=== PATIENT | female | born 1940 ===

== ENCOUNTER 2018-01-30 17:09 | Emergency (ER) | payer MEDICARE, BC ==
[~2018-01-30] VITALS: Ht 165.1 cm; Wt 61.2 kg
[2018-01-30] MEDS ORDERED: HYDR12.55 PO (17:26)
[2018-01-30] MEDS ORDERED: CITALOPRAM (17:26)
[2018-01-30] MEDS ORDERED: FOSAMAX (17:26)
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
--- NOTE | 2018-01-30 18:12 | NUR ---
Taken to CT scan.
--- NOTE | 2018-01-30 18:28 | NUR ---
Back from CT scan.
--- NOTE | 2018-01-30 19:47 | NUR ---
Patient discharged to home in stable conditon. Written and verbal after care instructions given. Patient verbalizes understanding of instructions.
[2018-01-30 19:49] VITALS: BP 168/83
== END 2018-01-30 19:51 | disposition home or self-care (01) ==
LOC: ER 17:11
DX: S00.83XA Contusion of other part of head, initial encounter (principal); I10 Essential (primary) hypertension; W18.30XA Fall on same level, unspecified, initial encounter; Y93.89 Activity, other specified; Y92.89 Other specified places as the place of occurrence of the external cause; Y99.8 Other external cause status
CPT/HCPCS: 70450; 99284; A4663